=== PATIENT | female | born 1990 | race African-American/Black ===

== ENCOUNTER 2019-11-16 15:04 | Emergency (ER) | payer BC, SELFPAY ==
--- NOTE | ~2019-11-16 | XR_ITS ---
XR foot LT min 3V DATE: 11/16/2019 16:19 INDICATION: Left foot pain, dorsal area. No injury. TECHNIQUE: 4 views COMPARISON: None FINDINGS: No fracture or dislocation, periosteal reaction or bone destruction. IMPRESSION: Negative Reviewed, dictated and finalized at location A. IMPRESSION: Negative
--- NOTE | ~2019-11-16 | XR_ITS ---
XR ankle LT min 3V DATE: 11/16/2019 16:19 INDICATION: Lateral ankle pain; no injury. TECHNIQUE: 4 views COMPARISON: None FINDINGS: No fracture or dislocation of the ankle or disruption of the ankle mortise. No periosteal r eaction or bone destruction. IMPRESSION: Negative Reviewed, dictated and finalized at location A. IMPRESSION: Negative
[2019-11-16 15:21] VITALS: BP 131/86; PULSE 87; RESP 16; TEMP 36.7; O2SAT 100
--- NOTE | 2019-11-16 15:27 | ED.GENADULT ---
HPI - General Adult General Chief complaint: Extremity Injury, Lower Stated complaint: left foot pain Time Seen by Provider: 11/16/19 15:56 Source: patient Mode of arrival: ambulatory Limitations: no limitations History of Present Illness HPI narrative: 29-year-old female patient presents to the [facility] with complaints of left foot pain x3 days. Patient denies any injury that she is aware of. Patient states that she did injure that foot about a year ago and had some physical therapy because she had pulled a tendon. Patient states that the pain feels very similar to the time when she pulled the tendon. Patient states she has been icing it, elevating it and taking ibuprofen. Patient states she has noticed some swelling around the ankle on the left foot. Patient states that the pain is mostly on the top of the foot but states that when she goes to take a step that she has pain when she steps. Related Data Home Medications Medication Instructions Recorded Confirmed No Home Medications 11/16/19 11/16/19 Allergies Allergy/AdvReac Type Severity Reaction Status Date / Time No Known Allergies Allergy Unverified 01/01/14 18:09 Review of Systems Review of Systems: Narrative: CONSTITUTIONAL: Denies fever, chills, or sweats. EYES: Denies visual changes, redness, or discharge. ENT: Denies rhinorrhea, congestion, sore throat, or otalgia. CARDIOVASCULAR: Denies chest pain, palpitations, or edema. RESPIRATORY: Denies cough or dyspnea. GASTROINTESTINAL: Denies abdominal pain, nausea, vomiting, or diarrhea. GENITOURINARY: Denies dysuria or hematuria. SKIN: Denies rash or itching. MUSCULOSKELETAL: Denies back pain, joint pain, or myalgia. Positive left foot and ankle pain NEUROLOGIC: Denies headache, numbness, or weakness. PSYCHIATRIC: Denies anxiety or depression. PMFSH Comments At the time of my signature I agree with nursing past medical history, surgical, social, and family history. There is no relevant family history pertinent to the presenting complaint. Exam Narrative: Exam Narrative: GENERAL: Well-appearing, well-nourished, and in no acute distress. HEAD: Normocephalic, atraumatic. EYES: PERRLA and EOMI. ENT: Nares clear, no rhinorrhea or epistaxis. Mucous membranes moist. NECK: Supple. No lymphadenopathy CHEST: Clear to auscultation. No respiratory distress. HEART: Regular rate and rhythm. No murmur heard. Normal peripheral pulses. ABDOMEN: Soft, nontender, nondistended, normal active bowel sounds. EXTREMITIES: Patient able to bear weight and ambulate without pain. No surface trauma, ecchymosis, erythema, lesions, ulcers or break in skin integrity. Slight swelling noted to the lateral side of the left foot. The L foot is without obvious asymmetry or deformity when compared to the R foot. No bony step-off, nontender to palpation over the toes, tenderness over the midfoot, no tenderness over the hindfoot or sole. Decreased plantar/dorsiflexion, normal inversion/eversion. Distal motor and neurovascular status are intact SKIN: Warm, dry, no rash. NEURO: No focal deficits. Alert and oriented x3. Course Reevaluation(s) Reevaluation #1: Reevaluated patient after her x-ray had resulted. Discussed with her that there is no acute fractures or bone abnormalities to the foot or ankle on x-rays. Discussed with her that she could have re-strain the ligaments or tendons that she her and her previous injury. Discussed with patient that we will go ahead and wrap her foot and ankle with an Filiberto wrap today and discharge her home and have her continue taking Tylenol and ibuprofen for the pain, elevating it, icing it and trying to rest it as much as possible. Discussed with patient that I will take her off work for today and tomorrow and if she needs more time off or needs to go back with restrictions she needs to see her primary doctor. Patient verbalized understanding of this and denies any other questions or concerns at this time. Date: 0
== END 2019-11-16 16:50 | disposition home or self-care (01) ==
PROVIDERS: Emergency Provider Nurse Practitioner Family; PCP Family Medicine
DX: S96.912A Strain of unspecified muscle and tendon at ankle and foot level, left foot, initial encounter (principal); X58.XXXA Exposure to other specified factors, initial encounter
CPT/HCPCS: 73610; 73630; 99213; G0463

== ENCOUNTER 2021-02-12 10:01 | Emergency (ER) | payer BC, SELFPAY ==
--- NOTE | 2021-02-12 10:17 | ED.URI ---
HPI - URI/Sore Throat General Chief Complaint: Upper Respiratory Infection Stated Complaint: Sore Throat Time Seen by Provider: 02/12/21 10:30 Source: patient and RN notes reviewed Mode of arrival: ambulatory Limitations: no limitations History of Present Illness HPI Narrative: 30-year-old female with medical history of a brain tumor presents with concern for acute sore throat, postnasal drainage. She reports she has been vaccinated for Covid. She denies chest pain, shortness of breath, cough, body aches, chills, sweats, fever, headache, loss of sense of taste or smell, nausea, vomiting, diarrhea, headache. She reports thick postnasal drainage. Reports she has been taking Mucinex. MD elicited complaint: sore throat Related Data Home Medications Medication Instructions Recorded Confirmed cabergoline 0.5 mg PO 2XW 02/12/21 02/12/21 Allergies Allergy/AdvReac Type Severity Reaction Status Date / Time No Known Allergies Allergy Verified 02/12/21 10:10 Review of Systems Review of Systems: CONSTITUTIONAL: Denies malaise, chills, sweats, or fever. EYES: Denies visual changes, redness, or discharge. ENT: Reports rhinorrhea, postnasal drainage, sore throat. Denies congestion, sinus pain, otalgia and sore throat. CARDIOVASCULAR: Denies chest pain, palpitations, or edema. RESPIRATORY: Denies cough or dyspnea. GASTROINTESTINAL: Denies abdominal pain, nausea, vomiting, diarrhea SKIN: Denies rash or itching. MUSCULOSKELETAL: Denies myalgia. NEUROLOGIC: Denies headache. All systems reviewed & are unremarkable except as noted in HPI and below PMFSH Comments At time of signature, agree with nursing past medical, surgical, social and family history. There is no relevant family history pertinent to the presenting complaint Exam Narrative: GENERAL: Well-appearing, well-nourished, and in no acute distress. HEAD: Normocephalic EYES: PERRLA, conjunctivae clear ENT: Nares clear, turbinates erythematous, clear discharge. Mucous membranes moist. TM pearly kuhn with dull light reflex bilaterally; no tragal tenderness. Oropharynx not erythematous without lesions. Tonsils not enlarged and without exudate, no drooling, no hoarseness, no trismus, uvula midline. NECK: Supple. No lymphadenopathy CHEST: Clear to auscultation, breath sounds equal. No wheezing, rhonchi, rales, or stridor. No respiratory distress, speaks in full sentences. HEART: Regular rate and rhythm. No murmur heard. SKIN: Warm, dry, no rash. NEURO: Alert and oriented x3. PSYCH: Normal mood and affect Course Course Emergency Course: Patient is aware of diagnosis, understands and agrees to treatment plan. Anticipatory guidance given. Patient agrees to follow-up as directed and is aware of reasons to seek care at the emergency department. Portions of this record may have been created with voice recognition software Vital Signs Vital signs: Vital Signs Temperature 97.7 F 02/12/21 10:23 Pulse Rate 98 02/12/21 10:23 Respiratory Rate 16 02/12/21 10:23 Blood Pressure 130/86 02/12/21 10:23 Temperature 97.7 F 02/12/21 10:23 Pulse Rate 98 02/12/21 10:23 Respiratory Rate 16 02/12/21 10:23 Blood Pressure 130/86 02/12/21 10:23 Reviewed. MDM - URI/Sore Throat MDM Narrative Medical decision making narrative: Differential diagnosis considered: Hernandez virus, strep pharyngitis, allergic rhinitis, upper respiratory tract infection, sinusitis, rhinosinusitis, nasopharyngitis. viral pharyngitis, otitis media, otitis externa, pneumonia, bronchitis, viral cough syndrome, viral syndrome, and influenza. Exam findings show no acute concerns or changes; patient is non-toxic appearing and is in no distress. Patient is appropriate for outpatient treatment and follow-up.Differential diagnosis considered: Hernandez virus, strep pharyngitis, allergic rhinitis, upper respiratory tract infection, sinusitis, rhinosinusitis, nasopharyngitis. viral pharyngitis, otitis media, otitis network systems analyst
[2021-02-12 10:23] VITALS: BP 130/86; PULSE 98; RESP 16; TEMP 36.5
== END 2021-02-12 10:48 | disposition home or self-care (01) ==
PROVIDERS: Emergency Provider Nurse Practitioner; PCP Family Medicine
DX: J06.9 Acute upper respiratory infection, unspecified (principal)
CPT/HCPCS: 87081; 87880; 99213; G0463